=== PATIENT | female | born 1990 | race Two or more races ===

== ENCOUNTER 2025-01-04 11:28 | Emergency (ER) | payer SELFPAY ==
[~2025-01-04] VITALS: Ht 157.5 cm; Wt 65.5 kg
[2025-01-04 11:39] VITALS: O2SAT 100
[2025-01-04] MEDS: KETOROLAC 30MG/ML VIAL IM ONE (13:04)
[2025-01-04] MEDS ORDERED: IBUP-2028 MT (14:46)
[2025-01-04 15:18] VITALS: BP 114/62; PULSE 61; RESP 14; TEMP 36.9; O2SAT 100
== END 2025-01-04 15:20 | disposition home or self-care (01) ==
LOC: ER 11:28
DX: J02.9 Acute pharyngitis, unspecified (principal)
CPT/HCPCS: 99285; 81025; 87430; 87070; 70360; 76536; 96372; J1885